=== PATIENT | male | born 1985 | race Caucasian/White ===

== ENCOUNTER 2019-02-11 16:14 | Inpatient (IN) | payer MEDICAID, OTHER ==
[~2019-02-11] VITALS: Ht 165.1 cm; Wt 75.8 kg
[2019-02-11] MEDS ORDERED: NS 1,000 ML IV ONE (17:15)
[2019-02-11 17:34] LABS: BASO % 0.3 % (0.0-1.0); EOS # 0.2 10^3/uL (0.0-0.5); EOS % 1.3 % (0.0-3.0); HEMATOCRIT 40.8 % (42.0-52.0); HEMOGLOBIN 13.8 g/dl (13.5-17.5); LYMPH # 2.5 10^3/uL (1.5-5.0); MEAN CORPUSCULAR HEMOGLOBIN 33.1 pg (27.0-33.0); MEAN CORPUSCULAR HGB CONC 33.8 g/dl (32.0-36.5); MEAN CORPUSCULAR VOLUME 97.8 fl (80.0-96.0); MONO # 1.9 10^3/uL (0.0-0.8); MONO % 15.1 % (0.0-5.0); NEUTROPHILS # 7.7 10^3/uL (1.5-8.5); NEUTROPHILS % 63.1 % (36.0-66.0); PLATELET COUNT, AUTOMATED 171 10^3/uL (150-450); RED BLOOD COUNT 4.17 10^6/uL (4.30-6.10); WHITE BLOOD COUNT 12.3 10^3/uL (4.0-10.0)
[2019-02-11 17:43] LABS: INR 0.96; PARTIAL THROMBOPLASTIN TIME 26.5 SECONDS (25.0-38.4); PROTHROMBIN TIME 12.5 SECONDS (11.8-14.0)
[2019-02-11] MEDS ORDERED: MORPHINE 4 MG/ML 1ML VIAL/SYRINGE (J2270) IV ONE (18:00)
[2019-02-11] MEDS ORDERED: ONDANSETRON 4MG/2ML VIAL (J2405) As Ordered ONE (18:03)
[2019-02-11 18:09] LABS: ALBUMIN 3.8 GM/DL (3.2-5.2); ALT/SGPT 20 U/L (12-78); BILIRUBIN,DIRECT 0.1 MG/DL (0.0-0.2); BILIRUBIN,TOTAL 0.4 MG/DL (0.2-1.0); BLOOD UREA NITROGEN 25 MG/DL (7-18); CARBON DIOXIDE LEVEL 25 MEQ/L (21-32); CHLORIDE LEVEL 109 MEQ/L (98-107); CREATININE FOR GFR 3.28 MG/DL (0.70-1.30); GLUCOSE, FASTING 77 MG/DL (70-100); LIPASE 239 U/L (73-393); POTASSIUM SERUM 3.9 MEQ/L (3.5-5.1); SODIUM LEVEL 141 MEQ/L (136-145); TOTAL PROTEIN 6.6 GM/DL (6.4-8.2)
[2019-02-11] MEDS ORDERED: ONDANSETRON 4MG/2ML VIAL (J2405) IV ONE (18:15)
--- NOTE | 2019-02-11 19:11 | REPVR ---
PROCEDURE INFORMATION: Exam: US Retroperitoneal Limited, Kidneys Exam date and time: 02/11/2019 6:19 PM Clinical history: 34 years old, male; Pain; Other: Flank; Additional info: Bilateral flank pain TECHNIQUE: Imaging protocol: Real-time ultrasound of the retroperitoneum with image documentation. Examination was focused on the kidneys. COMPARISON: Portions of CT Abdomen without contrast 08/13/2014 12:28 PM FINDINGS: Right kidney: Length: 10.8 cm. Mildly increased cortical echogenicity. No urolithiasis. No hydronephrosis. Left kidney: Length: 10.4 cm. Mildly increased cortical echogenicity. No urolithiasis. No hydronephrosis. Bladder: Bilateral ureteral jets could not be demonstrated during the time of the study. No stones. IMPRESSION: 1. No acute findings. 2. Mildly increased bilateral cortical echogenicity, which could be due to normal variation, medical renal disease, or other etiology. Electronically signed by: Xavier Hernandez On 02/11/2019 19:11:25 PM
[2019-02-11] MEDS ORDERED: cefTRIAXone SOD 1 GM in D5W MINI-BAG PLUS 50 ML IV ONE (20:00)
[2019-02-11] MEDS ORDERED: ACETAMINOPHEN TAB 650MG DOSE (2X325MG) PO PRN (20:00)
--- NOTE | 2019-02-11 20:01 | HPEPDOC ---
[facility] Medical History & Physical Date of Admission Feb 11, 2019 Date of Service: Feb 11, 2019 Attending Physician: ISADORA MARTINO MD History and Physical TIME OF SERVICE: 855PM CHIEF COMPLAINT: abdominal pain HISTORY OF PRESENT ILLNESS: This is a 34-year-old male who was seen at [facility] last night for evaluation of bilateral flank pain that began for 5 days ago. His initial workup revealed a WBC count of 14.4 and creatinine of 1.9. The CT of abdomen showed bilateral perinephric stranding; based on notes from the outside facility he was diagnosed with CKD. He was supposed to be transferred to another facility for a higher level of care but he left A. He reports leaving the hospital because he felt better. Today he came to [facility] because his pain was "10 times worse" than it was yesterday. Specifically, he had constant, sharp bilateral flank pain that radiated to the front that improved with lying down and is aid worse BY sitting up. Associated symptoms included nausea, more than 10 episodes of bloody emesis, bloody diarrhea , bruise at the left flank that began 4 or 5 days ago. He denies having fevers or chills, reports feeling cold all the time, has lost weight over the last few months, and has had a poor appetite. He denies having a rash, denies having joint pain, and denies having blood in the urine. Today WBC count decreased to 12.3, but his creatinine increased to 3.2. He received IV fluids and ceftriaxone. REVIEW OF SYSTEMS: 12 point review of systems negative except as listed in HPI PAST MEDICAL/ SURGICAL HISTORY: Denies any past medical history of kidney problems, COPD, any other medical problems, or surgeries SOCIAL HISTORY: Uses nicotine Drinks alcohol at least 2 beers daily. Reports his last drink was 4-5 days ago FAMILY HISTORY: Denies family history of kidney problems, cancer, or any other medical problems ALLERGIES: Please see below. HOME MEDICATIONS: Please see below. PHYSICAL EXAMINATION: VITAL SIGNS: Please see below. GENERAL APPEARANCE: Well-nourished, well-developed, appears to be in pain HEENT: Normocephalic, atraumatic, mucous members moist and pink CARDIOVASCULAR: Regular rate and rhythm. No murmurs, rubs or gallops LUNGS: Coughing occasionally. There is end expiratory wheezing ABDOMEN: . Bowel sounds are hypoactive, the patient's grimacing with light palpation of the abdomen, there is CVA tenderness MUSCULOSKELETAL: Age of motion is intact in all 4 extremities INTEGUMENT: There is a bruise at the left flank area with a raised lesion NEUROLOGICAL: CN 2-12 grossly intact. Speech not dysarthric PSYCHIATRIC: Alert and oriented to person, place and time, able to understand and follow commands, is irritable LABORATORY DATA: See below. IMAGING: Renal ultrasound " IMPRESSION: 1. No acute findings. 2. Mildly increased bilateral cortical echogenicity, which could be due to normal variation, medical renal disease, or other etiology. " Ultrasound of the pelvis " IMPRESSION: Probable liquefied hematoma in the right lower abdominal wall superficial soft tissues, with adjacent soft tissue edema or contusion." MICROBIOLOGY: Please see below. ASSESSMENT: Mr. Tirado is a 34-year-old male with a past medical history of alcohol abuse who will be admitted primarily for management of JARAD. PLAN: 1. JARAD vs JARAD on CKD ? His creatinine increased from 1.9 yesterday to 3.2 today. It is unclear if he has undiagnosed CKD The UA from [facility] showed + 100 protein, no leuk eser,no nitrites, no WBC The CT from [facility] showed findings c/w pyelonephritis The Renal US done here showed findings c/w possible CKD The Ca++ was wnl Plan: Is/Os, daily weights / Renal diet / IVF/ f/u CPK, drug screen, Phosphorous, 25 Vitamin D, Hepatitis Panel, PTH, C3, C4, Ulytes for FENa/FEUrea, UPro:Cr ratio / will not order protein immunoelectrophoresis bc he doesn't have anemia/ day time team can decide if he needs in pt vs out pt Nephrology eval / stop NSAIDs, ACEIs, ARBs and other Nephrotoxic drugs 2. Possible GI Bleed The patient reports having hematemesis and bloody diarrhea Due to hx of alcohol abuse, he may have esophageal varices +/- hemorrhoids His MAP is 109, HR is 83 and Hg is 13.8 [place]-Blatchford Score to identify low risk UGIB = 3 points = A GBS greater than zero suggests a High Risk GI bleed that is likely to require medical intervention" Plan: f/u stool occult / IV PPI BID / Octreotide drip / IV ciprofloxacin / avoid NSAIDs / pending repeat Hg day time team can determine if GI consult for EGD +/-c-scope is warranted this admission or can be done on an out pt basis 3. Left Flank Hematoma / Flank Pain Cause TBD His presentation doesn't meet criteria for acute pancreatitis b/c the lipase is wnl and CT scan didn't show findings c/w pancreatitis. Despite the CT scan showing perinephric stranding his UA was not c/w a UTI. The report from the US of the flank showed a hematoma. The only SIRS criteria he has is an elevated WBC # Plan: if he develops additional SIRS criterial the day time team may consider additional abx and or surgical consult / acetaminophen and tramadol for pain 4. Alcohol Abuse He denies having a hx of seizures when he doesn't drink. Plan: telemetry / seizure precautions / fall precautions / Thiamine 100mg daily, Folic acid 1mg daily, MVI / IVF / Zofran PRN for n/v /social work consult for referral to AA or other local support group 5. Cough & Wheezing possibly 2/2 bronchitis The patient denies having a hx of COPD. Plan: f/u influenza panel 6. Tobacco Abuse Plan: smoking cessation education DVT px w SCDs due to reports of hematemesis and bloody diarrhea Disposition pending clinical course 635AM LATE ENTRY Per d/w nursing staff he has had episodes of bradycardia w a HR in the 40s and did not c/o of any symptoms. 7.Asymptomatic Bradycardia Plan:c/w telemetry / f/u TSH & EKG Vital Signs Vital Signs Date Time Temp Pulse Resp B/P (MAP) Pulse Ox O2 Delivery O2 Flow Rate FiO2 02/11/19 18:49 16 02/11/19 16:58 02/11/19 16:15 98.4 83 100 Room Air Laboratory Data Labs 24H Laboratory Tests 2 02/11/19 17:14: Immature Granulocyte % (Auto) 0.2, Neutrophils (%) (Auto) 63.1, Lymphocytes (%) (Auto) 20.0L, Monocytes (%) (Auto) 15.1H, Eosinophils (%) (Auto) 1.3, Basophils (%) (Auto) 0.3, Neutrophils # (Auto) 7.7, Lymphocytes # (Auto) 2.5, Monocytes # (Auto) 1.9H, Eosinophils # (Auto) 0.2, Basophils # (Auto) 0.0, Nucleated Red Blood Cells % (auto) 0.0, Prothrombin Time 12.5, Prothromb Time International Ratio 0.96, Activated Partial Thromboplast Time 26.5, Urine Color STRAW, Urine Appearance CLEAR, Urine pH 6.0, Urine Specific [place] 1.005, Urine Protein 2+H, Urine Glucose (UA) NEGATIVE, Urine Ketones NEGATIVE, Urine Blood NEGATIVE, Urine Nitrite NEGATIVE, Urine Bilirubin NEGATIVE, Urine Urobilinogen 0.2, Urine Leuk ocyte Esterase NEGATIVE, Urine WBC (Auto) 1, Urine RBC (Auto) 2, Urine Hyaline Casts (Auto) 0, Urine Bacteria (Auto) 1+H, Urine Squamous Epithelial Cells 0, Urine Mucus (Auto) SMALL, Urine Sperm (Auto) , Anion Gap 7L, Glomerular Filtration Rate 23.0L, Calcium Level 9.0, Total Bilirubin 0.4, Direct Bilirubin 0.1, Aspartate Amino Transf (AST/SGOT) 15, Alanine Aminotransferase (ALT/SGPT) 20, Alkaline Phosphatase 68, Total Protein 6.6, Albumin 3.8, Albumin/Globulin Ratio 1.36, Lipase 239 CBC/BMP Laboratory Tests 02/11/19 17:14 Home Medications No Active Prescriptions or Reported Meds Allergies Coded Allergies: No Known Allergies (Unverified , 02/11/19) A-FIB/CHADSVASC A-FIB History Current/History of A-Fib/PAF?: No Current PO Anticoag Therapy: No ISADORA MARTINO MD Feb 11, 2019 20:01
[2019-02-11 20:43] LABS: PTH INTACT 20.5 PG/ML (18.5-88.0)
[2019-02-11] MEDS: NS 1,000 ML IV SCH (20:55)
--- NOTE | 2019-02-11 21:40 | REPVR ---
PROCEDURE INFORMATION: Exam: US Pelvis Limited, Male Exam date and time: 02/11/2019 9:21 PM Clinical history: 34 years old, male; Mass, lump, or swelling; Lower quadrant, right; Additional info: Right lower abdominal bruising with nodule TECHNIQUE: Imaging protocol: Real-time pelvic ultrasound with image documentation. COMPARISON: No relevant prior studies available. FINDINGS: Soft tissues: Ultrasound imaging of the right lower abdominal wall in area of palpable abnormality and bruising demonstrates a circumscribed, anechoic, avascular 11 x 8 x 6 mm fluid collection with adjacent soft tissue swelling and increased subcutaneous fat echogenicity. IMPRESSION: Probable liquefied hematoma in the right lower abdominal wall superficial soft tissues, with adjacent soft tissue edema or contusion. Electronically signed by: Xavier Hernandez On 02/11/2019 21:40:19 PM
[2019-02-11] MEDS ORDERED: LORazepam 2 MG TAB PO PRN (22:30)
[2019-02-11] MEDS ORDERED: ONDANSETRON 4 MG TAB (S0181) PO PRN (22:30)
[2019-02-11] MEDS ORDERED: OCTREOTIDE ACETATE 1,200 MCG in NS 238.8 ML IV SCH (23:00)
[2019-02-11 23:10] LABS: COMPLEMENT C3 95 MG/DL (90-180); COMPLEMENT C4 16 MG/DL (10-40); PHOSPHORUS LEVEL 3.4 MG/DL (2.5-4.9)
[2019-02-11] MEDS ORDERED: traMADol 50 MG TAB PO PRN (23:15)
[2019-02-11 23:32] LABS: CPK CREATINE PHOSPHOKINASE 58 U/L (39-308); ETHYL ALCOHOL (ETHANOL) < 0.003 % (0.000-0.010)
[2019-02-11] MEDS: PANTOPRAZOLE 40MG INJ (PROTONIX) (C9113) IV SCH (23:32)
[2019-02-11 23:55] VITALS: BP 158/95
[2019-02-12] VITALS: BP 158/95
[2019-02-12] MEDS: THIAMINE 100 MG TAB PO SCH ×3 (00:26→21:38)
[2019-02-12] MEDS: NICOTINE 14 MG/24 HR TRANSDERMAL TD SCH ×2 (00:26→09:30)
[2019-02-12] MEDS: NS 1,000 ML IV SCH ×4 (02:33→21:45)
[2019-02-12 06:00] VITALS: BP 162/97
[2019-02-12 06:16] LABS: HEMOGLOBIN 12.5 g/dl (13.5-17.5); MEAN CORPUSCULAR HEMOGLOBIN 32.4 pg (27.0-33.0); MEAN CORPUSCULAR HGB CONC 32.9 g/dl (32.0-36.5); MEAN CORPUSCULAR VOLUME 98.4 fl (80.0-96.0); PLATELET COUNT, AUTOMATED 150 10^3/uL (150-450); RED BLOOD COUNT 3.86 10^6/uL (4.30-6.10); WHITE BLOOD COUNT 10.3 10^3/uL (4.0-10.0)
[2019-02-12 06:40] LABS: CALCIUM LEVEL 8.5 MG/DL (8.5-10.1); CREATININE FOR GFR 3.4 MG/DL (0.70-1.30); GLOMERULAR FILTRATION RATE 22.1 (>60); POTASSIUM SERUM 4.3 MEQ/L (3.5-5.1)
[2019-02-12 07:07] LABS: THYROID STIMULATING HORMONE 0.216 uIU/ML (0.358-3.740)
[2019-02-12] MEDS ORDERED: CIPROFLOXACIN 500 MG TAB PO SCH (09:00)
[2019-02-12] MEDS ORDERED: **hydrALAZINE** 10 MG TAB PO SCH (09:00)
[2019-02-12 09:16] LABS: HEPATITIS B SURFACE ANTIBODY NEGATIVE (POSITIVE)
[2019-02-12 09:27] LABS: HEPATITIS B SURFACE ANTIGEN NEGATIVE (NEGATIVE)
[2019-02-12] MEDS: MULTIVITAMINS/MINERALS THERAP 1 TAB PO SCH (09:30)
[2019-02-12] MEDS: PANTOPRAZOLE 40MG INJ (PROTONIX) (C9113) IV SCH ×2 (09:30→21:38)
[2019-02-12] MEDS: FOLIC ACID 1 MG TAB PO SCH (09:31)
[2019-02-12 09:55] LABS: HEPATITIS B CORE ANTIBODY IGM NEGATIVE (NEGATIVE)
[2019-02-12 10:10] LABS: HEPATITIS C VIRUS ABY INDEX > 11.0 INDEX (<0.8)
--- NOTE | 2019-02-12 10:36 | ECGEPIP ---
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
[2019-02-12] MEDS ORDERED: NORCO, ANEXSIA 5/325MG TABLET (HYDROcodone/ACETAMINOPHEN) PO PRN (12:00)
[2019-02-12] MEDS: amLODIPine 5 MG TAB PO SCH ×2 (12:17→21:39)
[2019-02-12] MEDS: traMADol 50 MG TAB PO SCH ×3 (12:18→21:38)
[2019-02-12 13:06] LABS: HEMATOCRIT 40.4 % (42.0-52.0); HEMOGLOBIN 13.6 g/dl (13.5-17.5)
[2019-02-12 14:00] VITALS: BP 168/98
[2019-02-12] MEDS: ONDANSETRON 4MG/2ML VIAL (J2405) IV PRN (14:35)
[2019-02-12] MEDS: NORCO, ANEXSIA 5/325MG TABLET (HYDROcodone/ACETAMINOPHEN) PO PRN ×2 (14:36→22:30)
--- NOTE | 2019-02-12 20:06 | REPVR ---
PROCEDURE INFORMATION: Exam: CT Chest Without Contrast Exam date and time: 02/12/2019 6:21 PM Clinical history: 34 years old, male; Pain; Other: Cough; Additional info: Cough, hematemesis, PT with eshter TECHNIQUE: Imaging protocol: Computed tomography of the chest without contrast. 3D rendering: MIP reconstructed images were created and reviewed. Radiation optimization: All CT scans at this facility use at least one of these dose optimization techniques: automated exposure control; mA and/or kV adjustment per patient size (includes targeted exams where dose is matched to clinical indication); or iterative reconstruction. COMPARISON: No relevant prior studies available. FINDINGS: Lungs: No focal areas of consolidation. No masses. Pleural space: No pleural effusion or pneumothorax. Heart: Unremarkable. No pericardial effusion. Aorta: Unremarkable. Lymph nodes: Small calcified right mediastinal and axillary lymph nodes. No pathologically enlarged lymph nodes. Gallbladder and bile ducts: Questionable wall thickening of the partially visualized gallbladder. Bones/joints: No acute osseus lesion or fracture. Soft tissues: Unremarkable. IMPRESSION: 1. No acute findings in the thorax. 2. Questionable wall thickening of the partially visualized gallbladder. Correlate with CT abdomen and pelvis. Electronically signed by: Viraj Watson On 02/12/2019 20:05:55 PM
--- NOTE | 2019-02-12 20:08 | REP ---
Clinical: Abdominal and flank pain. Technique: Axial noncontrast images from the lung bases to the pubic symphysis with coronal and sagittal re-formations. Comparison: 08/13/2014. Findings: Mild inflammatory stranding is suggested in the central mid abdomen and right side which is nonspecific. Differential diagnosis may include enterocolitis, pancreatitis, and cholecystitis cannot be excluded. No free air. No significant adenopathy. Liver, spleen, pancreas, bilateral adrenal glands and kidneys are relatively normal for noncontrast evaluation. Cholelithiasis suggested. The enteric system is without obstruction or acute inflammatory process. Colonic and sigmoid diverticulosis. Pelvis demonstrates normal bladder and age appropriate prostate/seminal vesicles. No ascites. No free air. Abdominal aorta without aneurysm. Impression: 1. Upper abdominal inflammatory stranding extending to the right side of the abdomen is nonspecific. Differential diagnosis may include but is not limited to pancreatitis, colitis, cholecystitis. 2. No hydroureteronephrosis or nephroureterolithiasis. Electronically Signed by Anthony Gordon MD 02/12/2019 08:00 P
[2019-02-12 20:26] LABS: HEMOGLOBIN 12.4 g/dl (13.5-17.5)
[2019-02-12 22:00] VITALS: BP 162/97
[2019-02-12] MEDS: NICOTINE POLACRILEX 2 MG GUM PO PRN (22:28)
[2019-02-13] MEDS: ONDANSETRON 4MG/2ML VIAL (J2405) IV PRN ×2 (00:43→20:23)
[2019-02-13] MEDS: SENOKOT S TAB PO SCH ×3 (01:39→20:08)
[2019-02-13] MEDS ORDERED: PROMETHAZINE INJ 25 MG/ML VIAL (J2550) IM ONE (04:15)
[2019-02-13 04:20] LABS: BASO # 0.1 10^3/uL (0.0-0.2); BASO % 0.5 % (0.0-1.0); EOS # 0.2 10^3/uL (0.0-0.5); EOS % 1.3 % (0.0-3.0); HEMATOCRIT 37.9 % (42.0-52.0); HEMOGLOBIN 12.6 g/dl (13.5-17.5); LYMPH # 1.5 10^3/uL (1.5-5.0); LYMPH % 12.3 % (24.0-44.0); MEAN CORPUSCULAR HEMOGLOBIN 32.5 pg (27.0-33.0); MEAN CORPUSCULAR HGB CONC 33.2 g/dl (32.0-36.5); MEAN CORPUSCULAR VOLUME 97.7 fl (80.0-96.0); MONO # 1.3 10^3/uL (0.0-0.8); MONO % 11.1 % (0.0-5.0); NEUTROPHILS # 8.9 10^3/uL (1.5-8.5); NEUTROPHILS % 74.4 % (36.0-66.0); PLATELET COUNT, AUTOMATED 164 10^3/uL (150-450); RED BLOOD COUNT 3.88 10^6/uL (4.30-6.10)
[2019-02-13] MEDS: NS 1,000 ML IV SCH (04:31)
[2019-02-13 04:40] LABS: CALCIUM LEVEL 8.3 MG/DL (8.5-10.1); CREATININE FOR GFR 3.21 MG/DL (0.70-1.30); GLOMERULAR FILTRATION RATE 23.6 (>60); POTASSIUM SERUM 4.4 MEQ/L (3.5-5.1)
[2019-02-13] MEDS ORDERED: PROMETHAZINE INJ 25 MG/ML VIAL (J2550) IV ONE (05:15)
[2019-02-13 06:00] VITALS: BP 153/80
[2019-02-13 06:12] LABS: COMPLEMENT C3 91 MG/DL (90-180); COMPLEMENT C4 18 MG/DL (10-40)
[2019-02-13] MEDS: NORCO, ANEXSIA 5/325MG TABLET (HYDROcodone/ACETAMINOPHEN) PO PRN ×3 (08:39→21:41)
[2019-02-13] MEDS: NICOTINE 14 MG/24 HR TRANSDERMAL TD SCH (09:00)
[2019-02-13] MEDS: amLODIPine 5 MG TAB PO SCH ×2 (09:21→20:38)
[2019-02-13] MEDS: FOLIC ACID 1 MG TAB PO SCH (09:21)
[2019-02-13] MEDS: MULTIVITAMINS/MINERALS THERAP 1 TAB PO SCH (09:21)
[2019-02-13] MEDS: THIAMINE 100 MG TAB PO SCH ×2 (09:21→20:37)
[2019-02-13] MEDS: NICOTINE POLACRILEX 2 MG GUM PO PRN ×2 (09:22→15:55)
[2019-02-13] MEDS: PANTOPRAZOLE 40MG INJ (PROTONIX) (C9113) IV SCH ×2 (09:22→20:37)
--- NOTE | 2019-02-13 09:26 | CR ---
DATE OF CONSULTATION: 02/12/2019 REQUESTING PHYSICIAN: Dr. Taisha Rajan REASON FOR CONSULTATION: Nonoliguric acute kidney injury. HISTORY OF PRESENT ILLNESS: Chandler Tirado is a 34-year-old male with a past medical history of alcohol abuse, remote history of hepatitis C (contracted via tattooing) and no other self-reported medical problems. The patient reports he has no primary care physician and has not had routine blood work in recent memory. He reports he had a treatment of his hepatitis C around 12 years ago. The patient states that he was in his usual state of health until about five days ago when he developed episodic bloody diarrhea associated with bilateral lower quadrant crampy and stabbing pain, bilateral lower back pain and also episodic bloody vomiting. He denies any sick contacts or travel. He states that his diarrhea and vomiting was severe enough that he had to stop working (works at [employer]). The patient also reports subjective fever and chills and rigors. He denies any nonsteroidal anti-inflammatory drug (NSAID) use. He home went to the emergency room in [place] and was found to have a creatinine of 1.9. The patient left [place] against medical advice. Subsequently he came to [facility] yesterday because of worsening pain in his low back and in his lower quadrants and because of ongoing bloody diarrhea and hematemesis. The patient also reports that he found a bruise on his right lower quadrant and he does not know how it got there. The patient denies having any rash, any acute myalgias or arthralgias. He denies a personal or family history of autoimmune disease. He denies any changes in urine. He was seen and examined by myself this morning at the bedside after nephrology evaluation was requested as his serum creatinine on lab studies here has risen from 1.9 in [place] to 3.4 this morning. PAST MEDICAL HISTORY: Reported history of hepatitis C per patient treated 12 years ago and contracted via tattooing. SOCIAL HISTORY: The patient says he drinks six cans of beer daily, 12 ounce cans and has done so for many years. Chronic active smoker, no illicit drugs. He is engaged. FAMILY HISTORY: The patient denies a family history of kidney disease, end-stage renal disease or autoimmune disease. He reports his grandmother of breast cancer and his grandfather of colon cancer. He has no siblings and he states his parents are in good health. HOME MEDICATIONS: The patient denies using any home medications. ALLERGIES: NO KNOWN DRUG ALLERGIES. PAST SURGICAL HISTORY: The patient denies surgery. PHYSICAL EXAMINATION: VITAL SIGNS: Temperature 98.5, pulse 51, respiratory rate 17, blood pressure 162/97, saturating 99% on room air. GENERAL: The patient is seen lying in bed, a young male, well nourished, having notable chills and rigors with . Extraocular muscles are intact. Sclerae are anicteric. Ear, nose and throat are unremarkable. Dentition is poor but there is no notable oral ulcers. NECK: The neck is supple. The jugular veins were not elevated. CARDIAC: S1-S2, mild bradycardia, no edema in the peripheries. LUNGS: The lungs are clear to auscultation bilaterally. No crackle, rale or rhonchus. ABDOMEN: Soft and tender to palpation in the bilateral lower quadrant. There is a bruise noted in the right lower quadrant that is oval in shape and about 3 inches long. There is bilateral flank tenderness. EXTREMITIES: The extremities are negative for clubbing, cyanosis or edema. SKIN: Normal temperature and turgor. NEUROLOGIC: The patient is oriented times three, conversational, cooperative with physical exam, no focal deficits. PSYCHIATRIC: Appropriate mood and effect. He does appear anxious. REVIEW OF SYSTEMS: CONSTITUTIONAL: He reports chills, rigors and subjective fever. EYES: He denies visual changes or tearing. ENT: He denies odynophagia, rhinorrhea or tinnitus. CARDIAC: He denies chest pain or palpitations. RESPIRATORY: He denies shortness of breath or cough. GASTROINTESTINAL: He reports bloody emesis and bloody diarrhea. GENITOURINARY: He denies foamy urine, bloody urine or dysuria. ENDOCRINE: He denies diabetes or thyroid issues. MUSCULOSKELETAL: He denies any new myalgias. He does report low back pain. He denies gout. HEMATOLOGIC: He reports a bruise on his lower right lower quadrant. He denies anticoagulant use. SKIN: He denies any new rashes or pruritus. NEUROLOGIC: He denies seizure or syncope. PSYCHIATRIC: He denies any anxiety or depression. The remainder of review of systems is negative as per history of present illness (HPI). LABORATORY DATA: Sodium 141, potassium 4.3, bicarbonate 21, BUN 24, creatinine 3.4, creatine kinase 58, phosphorus 3.4, lactic acid 1.1, hemoglobin 12.4, platelets 150, PTH 20, urine 2+ protein, C3 and C4 are normal. IMAGING: Renal ultrasound February 11: Mildly increased bilateral cortical echogenicity, no hydronephrosis. INPATIENT MEDICATIONS: - normal saline at 150 mL an hour - amlodipine 5 mg by mouth twice a day - folic acid 1 mg by mouth daily - multivitamin one tablet by mouth daily - nicotine patch - Protonix 40 mg IV twice a day - thiamine 100 mg by mouth twice a day - tramadol 50 mg by mouth three times a day PROBLEMS 1. Non oliguric acute kidney injury. Baseline creatinine is unknown in this young man who denies having a primary care physician or routine blood work in the past. Creatinine was 1.9 in [place] emergency room (ER) and 3.2 on [facility] labs yesterday, and creatinine 3.4 today. Acute kidney injury is in the setting of bloody diarrhea, bloody emesis, abdominal and flank pain, falling platelet count. His urinalysis shows proteinuria without red blood cells (RBC). The etiology of his acute kidney injury is unknown but I am suspicious for hemolytic uremic syndrome given the bloody diarrhea and kidney injury. His platelets are at the lower level of normal at 150. We will additionally send serologies for other types of glomerulonephritis, get lactic acid dehydrogenase (LDH), haptoglobin, peripheral blood smear, JOSEFA, ANCA, anti-tr3, antimyeloperoxidase (MPO), hepatitis panel, HIV screen. Will also performed 24-hour urine collection for protein quantification. His complements are noted to be at the lower limit of normal and I would like to repeat his complements again tomorrow. he may end up needing a kidney biopsy for definitive diagnosis. Will decide after we have more data available for review. 2. Blood diarrhea, bloody emesis. Check gastrointestinal PCR for Shiga toxin, or Escherichia (E.) coli. Trend hemoglobin and hematocrit. Primary team has already started him on Protonix. The differential diagnosis includes gastrointestinal (GI) bleed versus esophageal variceal bleed versus diarrhea associated with hemolytic uremic syndrome (HUS). 3. Chills and rigors. The patient has mild leukocytosis but no febrile spikes. He was having notable rigors at my visit at the bedside today. His blood cultures are pending and a gastrointestinal panel has been requested as well. Thank you for involving me in the care of Mr. Tirado. I will be happy to follow him along with you.
[2019-02-13] MEDS: traMADol 50 MG TAB PO SCH ×3 (09:53→20:40)
--- NOTE | 2019-02-13 11:54 | IPNPDOC ---
Subjective Date Seen The patient was seen on 02/12/19. Subjective Chief Complaint/HPI Continues to complain of severe pain in both the flanks and the right lower quadrant of the abdomen. No fever or chills, has not had a bowel movement in 2 days , does not have any appetite, small amounts of urine output. No fever or chills, no cough or vomiting . No blood in stool . Objective Physical Examination General Exam: Positive: Alert, Cooperative, Mild Distress Eye Exam: Positive: PERRLA, Conjunctiva & lids normal, EOMI; Negative: Sclera icteric ENT Exam: Positive: Atraumatic, Mucous membr. moist/pink, Pharynx Normal Neck Exam: Positive: Supple; Negative: JVD, thyromegaly Chest Exam: Positive: Clear to auscultation, Normal air movement Heart Exam: Positive: Rate Normal, Regular Rhythm, Normal S1, Normal S2; Negative: Murmurs, Rubs Abdomen Exam: Positive: Normal bowel sounds, Soft, Tenderness, Mass; Negative: Hepatospenomegaly Extremity Exam: Positive: Normal pulses; Negative: Clubbing, Cyanosis, Edema Skin Exam: Positive: Nl turgor and temperature; Negative: Rash, Breakdown Assessment /Plan Assessment 34 year old male with h/o Hepatitis C treated with Ribavarin 12 years ago, alcohol abuse transferred from [facility] from [facility]. He has been having bilateral flank pain for 4 days prior to admission with decreased urine out put and also noted a bruise in the right lower abdominal wall. He denied being in a fight or falling or bumping into anything. JARAD vs JARAD on CKD ? His creatinine increased from 1.9 yesterday to 3.2 today. complements low normal will consult nephrology continue ivf. UA no blood, only 2+ protein. Possible GI Bleed The patient reports having hematemesis and bloody diarrhea CT abdomen did not show any cirrhotic pattern in the liver, INR OK, no thrombocytopenia. Unlikely cirrhosis will stop octreotide gtt. Right Flank Hematoma / Flank Pain No etiology determined. CT abdomen; shows Upper abdominal inflammatory stranding extending to the right side of the abdomen is nonspecific. No hydroureteronephrosis or nephroureterolithiasis. Pelvic US : Probable liquefied hematoma in the right lower abdominal wall s uperficial soft tissues, with adjacent soft tissue edema or contusion. Alcohol Abuse He denies having a hx of seizures when he doesn't drink. continue MVI and folate and thiamine. Tobacco Abuse nicotine gums DVT px w SCDs due to reports of hematemesis and bloody diarrhea Asymptomatic Bradycardia Plan:c/w telemetry / f/u TSH & EKG Plan/VTE VTE Prophylaxis Ordered?: Yes VS, I&O, 24H, Fishbone Vital Signs/I&O Vital Signs Date Time Temp Pulse Resp B/P (MAP) Pulse Ox O2 Delivery O2 Flow Rate FiO2 02/12/19 01:06 16 Room Air 02/12/19 00:00 55 158/95 02/11/19 23:55 96.9 97 I&O- Last 24 Hours up to 6 AM 02/12/19 06:00 Intake Total 2610 ml Output Total 0 ml Balance 2610 ml Laboratory Data 24H LABS Laboratory Tests 2 02/11/19 17:14: Immature Granulocyte % (Auto) 0.2, Neutrophils (%) (Auto) 63.1, Lymphocytes (%) (Auto) 20.0L, Monocytes (%) (Auto) 15.1H, Eosinophils (%) (Auto) 1.3, Basophils (%) (Auto) 0.3, Neutrophils # (Auto) 7.7, Lymphocytes # (Auto) 2.5, Monocytes # (Auto) 1.9H, Eosinophils # (Auto) 0.2, Basophils # (Auto) 0.0, Nucleated Red Blood Cells % (auto) 0.0, Prothrombin Time 12.5, Prothromb Time International Ratio 0.96, Activated Partial Thromboplast Time 26.5, Urine Color STRAW, Urine Appearance CLEAR, Urine pH 6.0, Urine Specific [place] 1.005, Urine Protein 2+H, Urine Glucose (UA) NEGATIVE, Urine Ketones NEGATIVE, Urine Blood NEGATIVE, Urine Nitrite NEGATIVE, Urine Bilirubin NEGATIVE, Urine Urobilinogen 0.2, Urine Leukocyte Esterase NEGATIVE, Urine WBC (Auto) 1, Urine RBC (Auto) 2, Urine Hyaline Casts (Auto) 0, Urine Bacteria (Auto) 1+H, Urine Squamous Epithelial Cells 0, Urine Mucus (Auto) SMALL, Urine Sperm (Auto) , Anion Gap 7L, Glomerular Filtration Rate 23.0L, Calcium Level 9.0, Phosphorus Level 3.4, Total Bilirubin 0.4, Direct Bilirubin 0.1, Aspartate Amino Transf (AST/SGOT) 15, Alanine Aminotransferase (ALT/SGPT) 20, Alkaline Phosphatase 68, Total Creatine Kinase 58, Total Protein 6.6, Albumin 3.8, Albumin/Globulin Ratio 1.36, Lipase 239, 25- Hydroxy Vitamin D Total 20.0L, Parathyroid Hormone (Intact) 20.5, Ethyl Alcohol Level < 0.003, Complement C3 95, Complement C4 16 02/11/19 21:35: Lactic Acid Level 1.1 02/12/19 05:45: Nucleated Red Blood Cells % (auto) 0.0, Anion Gap 6L, Glomerular Filtration Rate 22.1L, Calcium Level 8.5, Thyroid Stimulating Hormone (TSH) 0.216L CBC/BMP Laboratory Tests 02/11/19 17:14 02/12/19 05:45 CRAIG EVERETT MD Feb 12, 2019 08:07
[2019-02-13] MEDS: MIRALAX *UNIT DOSE* 17GM PACKET PO SCH ×2 (11:56→20:08)
[2019-02-13] MEDS ORDERED: BISACODYL 5 MG TAB PO ONE (12:00)
--- NOTE | 2019-02-13 12:09 | IPNPDOC ---
Subjective Date Seen The patient was seen on 02/13/19. Subjective Chief Complaint/HPI Says is constipated, no bowel movements for 3 days, continues to have bilateral flank pain . No hematemesis or hemoptysis. Objective Physical Examination General Exam: Positive: Alert, Cooperative, Mild Distress Eye Exam: Positive: PERRLA, Conjunctiva & lids normal, EOMI; Negative: Sclera icteric ENT Exam: Positive: Atraumatic, Mucous membr. moist/pink, Pharynx Normal Neck Exam: Positive: Supple; Negative: JVD, thyromegaly Chest Exam: Positive: Clear to auscultation, Normal air movement Heart Exam: Positive: Rate Normal, Regular Rhythm, Normal S1, Normal S2; Negative: Murmurs, Rubs Abdomen Exam: Positive: Normal bowel sounds, Soft, Tenderness, Mass; Negative: Hepatospenomegaly Extremity Exam: Positive: Normal pulses; Negative: Clubbing, Cyanosis, Edema Skin Exam: Positive: Nl turgor and temperature; Negative: Rash, Breakdown Assessment /Plan Assessment 34 year old male with h/o Hepatitis C treated with Ribavarin 12 years ago, alcohol abuse transferred from [facility] from [facility]. He has been having bilateral flank pain for 4 days prior to admission with decreased urine out put and also noted a bruise in the right lower abdominal wall. He denied being in a fight or falling or bumping into anything. JARAD Etiology not yet determined. No improvement with IVF hydration So not prerenal . complements low normal UA no blood, only 2+ protein. CT chest negative for any pulmonary abnormalities. Further work up has been ordered. If everything comes out negative will need a renal biopsy. has nausea and poor appetite symptomatic management . Possible GI Bleed The patient reported having hematemesis and bloody diarrhea no bleeding noted in hospital No drop in HH. CT abdomen did not show any cirrhotic pattern in the liver, INR OK, no thrombocytopenia. Unlikely cirrhosis Right Flank Hematoma / Flank Pain No etiology determined. CT abdomen; shows Upper abdominal inflammatory stranding extending to the right side of the abdomen is nonspecific. No hydroureteronephrosis or nephroureterolithiasis. Pelvic US : Probable liquefied hematoma in the right lower abdominal wall superficial soft tissues, with adjacent soft tissue edema or contusion. Pain control with tramadol, norco. Alcohol Abuse He denies having a hx of seizures when he doesn't drink. continue MVI and folate and thiamine. Hypertension noted in hospital started on amlodipine Tobacco Abuse nicotine gums DVT px w SCDs due to reports of hematemesis and bloody diarrhea Asymptomatic Bradycardia no issues Plan/VTE VTE Prophylaxis Ordered?: Yes VS, I&O, 24H, Fishbone Vital Signs/I&O Vital Signs Date Time Temp Pulse Resp B/P (MAP) Pulse Ox O2 Delivery O2 Flow Rate FiO2 02/13/19 09:53 19 Room Air 02/13/19 09:21 63 178/104 02/13/19 06:00 97.6 95 I&O- Last 24 Hours up to 6 AM 02/13/19 06:00 Intake Total 2260 ml Output Total 0 ml Balance 2260 ml Laboratory Data 24H LABS Laboratory Tests 2 02/12/19 12:20: 02/12/19 14:04: Hepatitis B Core IgG Antibody Negative 02/13/19 04:06: Immature Granulocyte % (Auto) 0.4, Neutrophils (%) (Auto) 74.4H, Lymphocytes (%) (Auto) 12.3L, Monocytes (%) (Auto) 11.1H, Eosinophils (%) (Auto) 1.3, Basophils (%) (Auto) 0.5, Neutrophils # (Auto) 8.9H, Lymphocytes # (Auto) 1.5, Monocytes # (Auto) 1.3H, Eosinophils # (Auto) 0.2, Basophils # (Auto) 0.1, Nucleated Red Blood Cells % (auto) 0.0, Differential Slide Review Report, Peripheral Blood Smear Path Consult PERIPHERAL SMEAR, Anion Gap 5L, Glomerular Filtration Rate 23.6L, Calcium Level 8.3L, Lactate Dehydrogenase 201, Complement C3 91, Complement C4 18 CBC/BMP Laboratory Tests 02/12/19 12:20 02/12/19 20:16 02/13/19 04:06 Microbiology Microbiology 02/12/19 Blood Culture, Received Pending 02/12/19 Blood Culture, Received Pending CRAIG EVERETT MD Feb 13, 2019 12:09
[2019-02-13 12:15] LABS: HEMATOCRIT 35.9 % (42.0-52.0); HEMOGLOBIN 12.2 g/dl (13.5-17.5)
[2019-02-13 14:00] VITALS: BP 150/80
--- NOTE | 2019-02-13 14:24 | IPN ---
DATE: 02/13/2019 SUBJECTIVE: Chandler is seen and examined this morning at the bedside. He was walking around the room and in and out of the bathroom when I visited him. He reports his pain is adequately controlled with the Percocet. 24-hour urine collection is in progress. The patient is nonoliguric. Laboratories did not show any significant change in renal function. There are no uremic signs or symptoms. His serologies are pending. He denies any gross hematuria of foamy urine. Denies any new bruises appearing. PHYSICAL EXAMINATION: Vital signs: Temperature 97.6, pulse 61, respiratory rate 18, blood pressure 153/80, saturating 95% on room air. Intake yesterday was 2600, urine output has not been recorded. The patient refused weight on the bed scale today. General: The patient is seen walking around the room, young man, somewhat with withdrawn and not very forthcoming. He is not having any notable chills or riders today. Extraocular muscles are intact. Sclerae are anicteric. Ear, nose and sore are unremarkable. There neck is supple. Jugular veins were not elevated. Cardiac: S1, S2. Regular rate and rhythm. Palpable radial pulse. No edema in the peripheries. Lungs: Clear to auscultation bilaterally. No crackles, rales or rhonchus. Abdomen is soft with tenderness in the bilateral lower quadrants, which has improved as compared to yesterday. Flank tenderness is improved as well. The extremities are negative for clubbing, cyanosis or edema. Skin: Normal temperature and turgor. Fading bruise present in the right lower quadrant. Neurologic: Oriented times three. Conversational, cooperative with physical exam. No focal deficit. Psychiatric. The patient is somewhat withdrawn and appears unhappy. LABORATORIES: Sodium 146, potassium 4.4, bicarbonate 24, BUN 20, creatinine 3.2, lactic dehydrogenase 201, haptoglobin pending, hemoglobin 12.2, platelet 164. Repeat complements are at the lower limits of normal. CT chest, abdomen and pelvis are reviewed and discussed with Dr. Rajan. No significant abnormality noted. INPATIENT MEDICATIONS: Normal saline has been discontinued. Remainder of medications are unchanged from prior. PROBLEMS: 1. Nonoliguric acute kidney injury. Baseline renal function is unknown. Peak creatinine was 3.4, 24-hour urine collection is in process. His lactate dehydrogenase has returned back to normal. His platelet count has not fallen any further. His hemoglobin is stable. There has been no recurrent reported diarrhea. Additional workup, including JOSEFA, ANCA are all pending. His complements were repeated and noted to be at the lower limit of normal. If his renal function does not improve, he would require a kidney biopsy for definitive diagnosis. He is not on any antiplatelets or blood thinners. His CT chest, abdomen and pelvis did not have significant abnormality. I am less suspicious for pulmonary renal syndrome. The patient has no dialysis needs at present. He will be reassessed daily for any developing dialysis needs. 2. Hypertension. Blood pressures are elevated from 150 to 178. The patient denies a prior history of hypertension but also never followed up with the primary care physician. Some of the elevated blood pressure may be due to his reported pain. He is presently on amlodipine. There is asymptomatic bradycardia so I would not add a beta fredo; however, hydralazine can be started if blood pressure continues to remain elevated. Given his history of hepatitis C, acute kidney injury, bradycardia, hypertension, I am going to get an echocardiogram.
--- NOTE | 2019-02-13 18:21 | ECHO ---
DATE OF PROCEDURE: 02/13/2019 DATE OF : 1985 AGE: 34 GENDER: Male HEIGHT: 65 inches WEIGHT: 167 pounds BODY SURFACE AREA: 1.83 meters squared INPATIENT: [address] [place] [address], room 4224 REFERRING PHYSICIAN: Dr. Florence Mcqueen INDICATION: Endocarditis. MEASUREMENTS: 2D Measurements: RV: 3.6 cm LV: 4.5 cm Septum: 1.0 cm Posterior wall: 1.0 cm Aortic root: 3.3 cm LA: 3.7 cm LVEF: 65% DOPPLER MEASUREMENTS: AV: 1.32 meters per second LVOT: 0.95 meters per second MV-E: 129, A: 50, EA ratio: 2.6 Early mitral deceleration time: 146 milliseconds E prime: 10, A prime: 9 (medial), E prime 13.8 (lateral) PV: 0.9 meters per second Pulmonary artery acceleration time: 122 milliseconds PASP: 25 mmHg IVC: 1.9 cm COMMENTS: Sinus bradycardia without intraventricular conduction disturbance. M-mode and two-dimensional echocardiography was performed with pulsed, continuous wave, color flow and tissue Doppler studies. Normal left ventricular size, wall thickness and wall motion. Normal left atrial size and Doppler assessment of left ventricular (LV) diastolic function and estimated mean left atrial pressure. Normal right heart chamber sizes and motion and estimated pulmonary arterial pressure. Normal inferior vena cava (IVC) size and collapse against an elevated central venous pressure. Normal appearing aortic valve and cusp separation with no functional valvular abnormality. Normal aortic dimensions. Normal appearing and functioning mitral valvular apparatus. Normal appearing tricuspid and pulmonic valves. No apparent separate intracardiac mass to suggest vegetation. No pericardial effusion.
[2019-02-13 19:40] LABS: CREATININE 24 HOUR, URINE 718.2 MG/24HR (950-2500); CREATININE, URINE 51.3 MG/DL; TOTAL PROTEIN 24 HOUR URINE 211.4 MG/24HR (50-150); URINE TOTAL PROTEIN 15.1 MG/DL (0-12)
[2019-02-13 19:57] LABS: HEMATOCRIT 35.2 % (42.0-52.0); HEMOGLOBIN 11.9 g/dl (13.5-17.5)
[2019-02-13 20:00] VITALS: BP 164/100
[2019-02-13] MEDS ORDERED: diphenhydrAMINE INJ 50MG/ML VIAL (J1200) IV ONE (21:30)
[2019-02-14 01:43] VITALS: BP 158/83
[2019-02-14] MEDS: NORCO, ANEXSIA 5/325MG TABLET (HYDROcodone/ACETAMINOPHEN) PO PRN ×2 (04:06→14:52)
[2019-02-14 04:10] LABS: BASO % 0.3 % (0.0-1.0); EOS # 0.3 10^3/uL (0.0-0.5); EOS % 2.2 % (0.0-3.0); HEMATOCRIT 35.2 % (42.0-52.0); HEMOGLOBIN 12.4 g/dl (13.5-17.5); LYMPH # 1.8 10^3/uL (1.5-5.0); LYMPH % 15.6 % (24.0-44.0); MEAN CORPUSCULAR HEMOGLOBIN 33.9 pg (27.0-33.0); MEAN CORPUSCULAR HGB CONC 35.2 g/dl (32.0-36.5); MEAN CORPUSCULAR VOLUME 96.2 fl (80.0-96.0); MONO # 1.3 10^3/uL (0.0-0.8); MONO % 11.2 % (0.0-5.0); NEUTROPHILS % 70.3 % (36.0-66.0); PLATELET COUNT, AUTOMATED 144 10^3/uL (150-450); RED BLOOD COUNT 3.66 10^6/uL (4.30-6.10); WHITE BLOOD COUNT 11.4 10^3/uL (4.0-10.0)
[2019-02-14] MEDS: ONDANSETRON 4MG/2ML VIAL (J2405) IV PRN ×3 (04:19→20:34)
[2019-02-14 04:31] LABS: CALCIUM LEVEL 8.2 MG/DL (8.5-10.1); CREATININE FOR GFR 2.35 MG/DL (0.70-1.30); GLOMERULAR FILTRATION RATE 33.8 (>60); POTASSIUM SERUM 3.9 MEQ/L (3.5-5.1)
[2019-02-14 06:00] VITALS: BP 137/72
[2019-02-14] MEDS: BISACODYL 5 MG TAB PO SCH (09:00)
[2019-02-14] MEDS: NICOTINE 14 MG/24 HR TRANSDERMAL TD SCH (09:00)
[2019-02-14] MEDS: SENOKOT S TAB PO SCH ×2 (09:00→20:32)
[2019-02-14] MEDS: MIRALAX *UNIT DOSE* 17GM PACKET PO SCH ×2 (09:00→20:31)
[2019-02-14] MEDS: PANTOPRAZOLE 40MG INJ (PROTONIX) (C9113) IV SCH ×2 (09:43→20:34)
[2019-02-14] MEDS: THIAMINE 100 MG TAB PO SCH (09:43)
[2019-02-14] MEDS: MULTIVITAMINS/MINERALS THERAP 1 TAB PO SCH (09:43)
[2019-02-14] MEDS: traMADol 50 MG TAB PO SCH ×3 (09:45→20:34)
[2019-02-14] MEDS: FOLIC ACID 1 MG TAB PO SCH (09:49)
[2019-02-14] MEDS: amLODIPine 5 MG TAB PO SCH ×2 (09:49→20:32)
[2019-02-14] MEDS: NICOTINE POLACRILEX 2 MG GUM PO PRN (10:27)
[2019-02-14 11:14] LABS: HEPATITIS B CORE ANTIBODY IGM NEGATIVE (NEGATIVE); HEPATITIS B SURFACE ANTIBODY NEGATIVE (POSITIVE); HEPATITIS B SURFACE ANTIGEN NEGATIVE (NEGATIVE); HEPATITIS C VIRUS ABY INDEX > 11.0 INDEX (<0.8); HIV 1&2 SCREEN CENTAUR NEGATIVE (NEGATIVE)
--- NOTE | 2019-02-14 12:50 | IPNPDOC ---
Subjective Date Seen The patient was seen on 02/14/19. Subjective Chief Complaint/HPI continues to complain of abdominal and bilateral flank pain. also complains of itching which he thinks is related to the soap. No fever or chills, no chest pain or SOB. Objective Physical Examination General Exam: Positive: Alert, Cooperative, Mild Distress Eye Exam: Positive: PERRLA, Conjunctiva & lids normal, EOMI; Negative: Sclera icteric ENT Exam: Positive: Atraumatic, Mucous membr. moist/pink, Pharynx Normal Neck Exam: Positive: Supple; Negative: JVD, thyromegaly Chest Exam: Positive: Clear to auscultation, Normal air movement Heart Exam: Positive: Rate Normal, Regular Rhythm, Normal S1, Normal S2; Negative: Murmurs, Rubs Abdomen Exam: Positive: Normal bowel sounds, Soft, Tenderness, Mass; Negative: Hepatospenomegaly Extremity Exam: Positive: Normal pulses; Negative: Clubbing, Cyanosis, Edema Skin Exam: Positive: Nl turgor and temperature; Negative: Rash, Breakdown Assessment /Plan Assessment 34 year old male with h/o Hepatitis C treated with Ribavarin 12 years ago, alcohol abuse transferred from [facility] from [facility]. He has been having bilateral flank pain for 4 days prior to admission with decreased urine out put and also noted a bruise in the right lower abdominal wall. He denied being in a fight or falling or bumping into anything. JARAD most probably prerenal as other work up is coming back negative and seems to have improved spontaneously . he did get IVF for the first 2 days after admission complements low normal, cryoglobulins negative. UA no blood, only minimal protein only 211 mg in [address] chest negative for any pulmonary abnormalities. Possible GI Bleed The patient reported having hematemesis and bloody diarrhea no bleeding noted in hospital No drop in HH. CT abdomen did not show any cirrhotic pattern in the liver, INR OK, no thrombocytopenia. Unlikely cirrhosis Right Flank Hematoma / Flank Pain No etiology determined. CT abdomen; shows Upper abdominal inflammatory stranding extending to the right side of the abdomen is nonspecific. No hydroureteronephrosis or nephroureterolithiasis. Pelvic US : Probable liquefied hematoma in the right lower abdominal wall superficial soft tissues, with adjacent soft tissue edema or contusion. Pain control with tramadol, norco. Alcohol Abuse He denies having a hx of seizures when he doesn't drink. continue MVI and folate and thiamine. Hypertension noted in hospital started on amlodipine Tobacco Abuse nicotine gums Asymptomatic Bradycardia no issues Plan/VTE VTE Prophylaxis Ordered?: Yes VS, I&O, 24H, Fishbone Vital Signs/I&O Vital Signs Date Time Temp Pulse Resp B/P (MAP) Pulse Ox O2 Delivery O2 Flow Rate FiO2 02/14/19 09:49 70 170/88 02/14/19 09:45 20 Room Air 02/14/19 06:00 98.7 98 I&O- Last 24 Hours up to 6 AM 02/14/19 06:00 Intake Total 2520 ml Output Total 0 ml Balance 2520 ml Laboratory Data 24H LABS Laboratory Tests 2 02/14/19 04:02: Immature Granulocyte % (Auto) 0.4, Neutrophils (%) (Auto) 70.3H, Lymphocytes (%) (Auto) 15.6L, Monocytes (%) (Auto) 11.2H, Eosinophils (%) (Auto) 2.2, Basophils (%) (Auto) 0.3, Neutrophils # (Auto) 8.0, Lymphocytes # (Auto) 1.8, Monocytes # (Auto) 1.3H, Eosinophils # (Auto) 0.3, Basophils # (Auto) 0.0, Nucleated Red Blood Cells % (auto) 0.0, Anion Gap 7L, Glomerular Filtration Rate 33.8L, Calcium Level 8.2L CBC/BMP Laboratory Tests 02/13/19 19:47 02/14/19 04:02 Microbiology Microbiology 02/13/19 Stool Occult Blood ([facility]) - Final, Complete 02/12/19 Blood Culture - Preliminary, Resulted No growth after 24 hours . All specim... 02/12/19 Blood Culture - Preliminary, Resulted No growth after 24 hours . All specim... CRAIG EVERETT MD Feb 14, 2019 12:48
[2019-02-14] MEDS ORDERED: diphenhydrAMINE 25 MG CAP PO PRN (13:00)
--- NOTE | 2019-02-14 13:21 | IPN ---
DATE OF SERVICE: 02/14/2019 SUBJECTIVE: The patient is seen and examined this morning at the bedside. He complains of stomach cramps and requests pain medication. Otherwise denies any new issues. 24-hour urine output was recorded as 1400 mL. His 24-hour urine protein was extremely mild and his renal function continues to show improvement. He denies shortness of breath, diarrhea or issues voiding. Temperature 98.7, pulse 77, respiratory rate 18, blood pressure 137/72, saturating 98% on room air. General: The patient is seen lying in bed, a young male, well nourished, in no acute distress. He is reluctant to talk and says he just wants to be left alone. Extraocular muscles are intact. Tongue is moist. Neck is supple. Jugular veins are not elevated. Cardiac: S1, S2. Regular rate and rhythm. Lungs are clear to auscultation bilaterally. No crackle, rale or rhonchus. Abdomen is soft. There is no rebound, tenderness nor guarding. There are bowel sounds. There are no new bruises noted. There is no tenderness in the flanks today. Lower extremities are negative for edema, clubbing or cyanosis. Neurologic: He is oriented times three. No focal deficits. Psychiatric: He is withdrawn. LABORATORY DATA: Sodium 144, potassium 3.9, bicarbonate 25, BUN 11, creatinine 2.3, hemoglobin 12.4, platelets 144. INPATIENT MEDICATIONS: Reviewed by myself. Medications have been adjusted by the primary team. Remainder medications unchanged from prior. ECHOCARDIOGRAM: On 02/13/2019, left ventricular ejection fraction 65%. PROBLEMS: 1. Nonoliguric acute kidney injury. Baseline renal function is unknown. Peak creatinine was 3.4, presently down to 2.3. His 24-hour urine collection is not impressive. There is almost a negligible amount of protein. There was no microscopic hematuria on urinalysis. Serologies thus far have only been significant for positive hepatitis C antibody and low normal complements. Remainder of serologies are pending. Renal function is improving with supportive care. If renal function continues to improve, he would not need kidney biopsy. We will continue to monitor for further improvement in his GFR. 2. Hypertension. The patient has been persistently hypertensive over the course of this admission. He denies a prior history of known hypertension, but never has followed up with a primary care physician. He has been requiring antihypertensive therapy here with amlodipine. 3. Reported bloody diarrhea. The patient has not had any further such bowel movements and his stool occult blood was negative in the hospital. His hemoglobin and hematocrit remain stable.
[2019-02-14 14:00] VITALS: BP 148/75
[2019-02-14] MEDS ORDERED: PINK BISMUTH SUSP 524MG/30ML ORAL SYRINGE PO ONE (16:00)
[2019-02-14 22:00] VITALS: BP 170/92
[2019-02-15 00:08] LABS: ANTINUCLEAR ANTIBODIES DIRECT Negative (Negative)
[2019-02-15] MEDS: NORCO, ANEXSIA 5/325MG TABLET (HYDROcodone/ACETAMINOPHEN) PO PRN ×3 (00:55→16:02)
[2019-02-15 07:00] LABS: BASO % 0.3 % (0.0-1.0); EOS # 0.3 10^3/uL (0.0-0.5); EOS % 2.9 % (0.0-3.0); HEMOGLOBIN 12.1 g/dl (13.5-17.5); LYMPH # 1.9 10^3/uL (1.5-5.0); LYMPH % 21.3 % (24.0-44.0); MEAN CORPUSCULAR HEMOGLOBIN 33.4 pg (27.0-33.0); MEAN CORPUSCULAR HGB CONC 35.6 g/dl (32.0-36.5); MEAN CORPUSCULAR VOLUME 93.9 fl (80.0-96.0); MONO # 1.5 10^3/uL (0.0-0.8); MONO % 16.5 % (0.0-5.0); NEUTROPHILS # 5.2 10^3/uL (1.5-8.5); NEUTROPHILS % 58.7 % (36.0-66.0); PLATELET COUNT, AUTOMATED 147 10^3/uL (150-450); RED BLOOD COUNT 3.62 10^6/uL (4.30-6.10); WHITE BLOOD COUNT 8.9 10^3/uL (4.0-10.0)
[2019-02-15 07:35] LABS: CALCIUM LEVEL 8.8 MG/DL (8.5-10.1); CREATININE FOR GFR 1.58 MG/DL (0.70-1.30); GLOMERULAR FILTRATION RATE 53.4 (>60); POTASSIUM SERUM 2.9 MEQ/L (3.5-5.1)
[2019-02-15] MEDS: ONDANSETRON 4MG/2ML VIAL (J2405) IV PRN (07:45)
[2019-02-15] MEDS: NICOTINE 14 MG/24 HR TRANSDERMAL TD SCH (08:07)
[2019-02-15] MEDS: MULTIVITAMINS/MINERALS THERAP 1 TAB PO SCH (08:07)
[2019-02-15] MEDS: PANTOPRAZOLE 40MG INJ (PROTONIX) (C9113) IV SCH (08:07)
[2019-02-15] MEDS: SENOKOT S TAB PO SCH (08:07)
[2019-02-15 08:08] VITALS: BP 159/89
[2019-02-15] MEDS: BISACODYL 5 MG TAB PO SCH (08:08)
[2019-02-15] MEDS: amLODIPine 5 MG TAB PO SCH (08:08)
[2019-02-15] MEDS: MIRALAX *UNIT DOSE* 17GM PACKET PO SCH (08:08)
[2019-02-15] MEDS: FOLIC ACID 1 MG TAB PO SCH (08:08)
[2019-02-15 09:00] VITALS: BP 159/89
[2019-02-15] MEDS ORDERED: POTASSIUM CHLORIDE 10 MEQ SR TABLET PO ONE (09:00)
[2019-02-15] MEDS: KCL 40MEQ in NS 1000ML 1,000 ML IV SCH ×2 (11:19→16:00)
[2019-02-15] MEDS ORDERED: PROMETHAZINE INJ 25 MG/ML VIAL (J2550) IV ONE (12:00)
[2019-02-15 14:00] VITALS: BP 134/72
--- NOTE | 2019-02-15 15:49 | IPN ---
DATE: 02/15/2019 Mr. Tirado is seen this morning on his bedside. He is sitting in the chair at the time of my visit. He is currently receiving intravenous Phenergan for nausea. He denies any dyspnea or chest pain. His diarrhea has improved, and there is no recent vomiting. PHYSICAL EXAMINATION: Temperature 98 degrees Fahrenheit, heart rate 6 per minute, respiratory rate 16 per minute, blood pressure 159/89 mm of mercury, and oxygen saturation is 100% on room air. Head is atraumatic. Neck is supple and without jugular venous distention (JVD) or thyroid enlargement. Heart sounds are regular. Lungs clear to auscultation. Abdomen soft and nontender, and bowel sounds are normal. Extremities have no cyanosis or clubbing. Neurologically, he is awake, alert, and oriented times three. Today's labs show WBC count 8.9, hemoglobin 12.1 and hematocrit 34.0. Sodium 140, potassium 2.9, CO2 of 27, BUN 6, and creatinine 1.58. Glucose 83 and calcium 8.8. PROBLEMS: 1. Acute renal failure. Kidney function is improving nicely, and patient is scheduled to receive intravenous (IV) fluid, however, is currently receiving intravenous Phenergan. I would suggest to hydrate him, which is likely to help improve in his kidney function. 2. Hypokalemia, most likely related to his gastrointestinal (GI) symptoms and poor oral intake. He has received some oral supplement and also going to receive potassium supplement in the IV fluid. Electrolytes should be checked prior to discharge. 3. Hypertension. Most likely has chronic untreated hypertension and should continue with antihypertensive therapy and follow up as an outpatient. 4. Disposition from a renal standpoint, the patient can be discharged after repeating his electrolytes and with appropriate medications and plan for followup as an outpatient.
[2019-02-15] MEDS ORDERED: HYDR-4571 PO (17:44)
[2019-02-15] MEDS ORDERED: AMLO10TA5 PO (17:44)
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
== END 2019-02-15 18:13 | disposition home or self-care (01) | DRG 469 ==
LOC: M ED 16:14 → M ED INP 19:46 → M MSPAV 23:54
PROVIDERS: ADMIT Internal Medicine; ATTEND Internal Medicine Nephrology
DX: N17.9 Acute kidney failure, unspecified (principal); K92.2 Gastrointestinal hemorrhage, unspecified; I10 Essential (primary) hypertension; M79.81 Nontraumatic hematoma of soft tissue; F17.200 Nicotine dependence, unspecified, uncomplicated; B18.2 Chronic viral hepatitis C; F10.10 Alcohol abuse, uncomplicated; E87.6 Hypokalemia

== ENCOUNTER 2020-11-08 13:22 | Emergency (ER) | payer OTHER ==
[~2020-11-08] VITALS: Ht 165.1 cm; Wt 72.4 kg
[2020-11-08 13:22] VITALS: BP 156/89
[~2020-11-08 13:22] MED LIST: AMLO1TAB25 PO; HYDR-4571 PO
== END 2020-11-08 15:15 | disposition left against medical advice (07) ==
LOC: M ED 13:22
DX: Z53.21 Procedure and treatment not carried out due to patient leaving prior to being seen by health care provider (principal)

== ENCOUNTER 2020-11-13 20:44 | Emergency (ER) | payer OTHER ==
[~2020-11-13] VITALS: Ht 177.8 cm; Wt 79.5 kg
[2020-11-13 22:09] LABS: HEMATOCRIT 43.1 % (42.0-52.0); HEMOGLOBIN 15.3 g/dl (13.5-17.5); MEAN CORPUSCULAR HEMOGLOBIN 33.6 pg (27.0-33.0); MEAN CORPUSCULAR HGB CONC 35.5 g/dl (32.0-36.5); MEAN CORPUSCULAR VOLUME 94.5 fl (80.0-96.0); PLATELET COUNT, AUTOMATED 199 10^3/uL (150-450); RED BLOOD COUNT 4.56 10^6/uL (4.30-6.10)
[2020-11-13 22:25] LABS: WHITE BLOOD COUNT 16.4 10^3/uL (4.0-10.0)
[2020-11-13] MEDS ORDERED: BOOSTRIX/ADACEL VACCINE (DIPHTH/PERTUSS/ACELL/TETANUS) 0.5ML SYR IM ONE (22:25)
[2020-11-13] MEDS ORDERED: MORPHINE 4 MG/ML 1ML VIAL/SYRINGE (J2270) IV ONE (22:25)
[2020-11-13] MEDS ORDERED: cefTRIAXone SOD 2 GM in D5W MINI-BAG PLUS 50 ML IV ONE (22:25)
[2020-11-13 22:27] LABS: ATYPICAL LYMPH 5 % (0-5); LYMPHOCYTES 18 % (16-44); MONOCYTES 7 % (0-5); NEUTROPHILS 69 % (28-66)
[2020-11-13 22:29] LABS: PLATELET ESTIMATE NORMAL (NORMAL)
[2020-11-13 22:43] LABS: ALBUMIN 4.1 GM/DL (3.2-5.2); ALT/SGPT 62 U/L (12-78); BILIRUBIN,DIRECT 0.2 MG/DL (0.0-0.2); BILIRUBIN,TOTAL 0.4 MG/DL (0.2-1.0); BLOOD UREA NITROGEN 12 MG/DL (7-18); CALCIUM LEVEL 8.8 MG/DL (8.5-10.1); CARBON DIOXIDE LEVEL 23 MEQ/L (21-32); CHLORIDE LEVEL 104 MEQ/L (98-107); CREATININE FOR GFR 1.01 MG/DL (0.70-1.30); GLOMERULAR FILTRATION RATE > 60.0 (>60); GLUCOSE, FASTING 109 MG/DL (70-100); SODIUM LEVEL 135 MEQ/L (136-145)
[2020-11-13] MEDS ORDERED: ISOVUE-370 76% 100ML VIAL As Ordered ONE (22:46)
[2020-11-13] MEDS ORDERED: PIPERACILLIN/TAZOBACTAM SOD 3.375 GM in D5W MINI-BAG PLUS 50 ML IV ONE (23:30)
[2020-11-13] MEDS ORDERED: fentaNYL 100 MCG/2 ML INJECTION (J3010) IV ONE (23:35)
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
[2020-11-14] MEDS ORDERED: LIDOCAINE 1% MDV 20ML VIAL SC ONE (01:25)
[2020-11-14] MEDS ORDERED: BUPIVACAINE HCL 0.25% 10ML VIAL SC ONE (01:25)
[2020-11-14 01:41] LABS: RSV AMPLIFICATION NEGATIVE (NEGATIVE)
[2020-11-14] MEDS ORDERED: VANCOMYCIN HCL 1,000 MG, VIAL MATE ADAPTER 1 EACH in NS 250 ML IV ONE ×2 (02:00→06:00)
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
[2020-11-14] MEDS ORDERED: fentaNYL 100 MCG/2 ML INJECTION (J3010) IV ONE (02:25)
[2020-11-14 02:42] VITALS: BP 137/79
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
--- NOTE | 2020-11-15 08:34 | REP ---
INDICATION: ORTHO NEEDS FOR PROCEDURE. COMPARISON: Comparison wrist radiographs are from November 14, 2020.. TECHNIQUE: Five views. 98.7 seconds of fluoroscopy time is reported FINDINGS: . A sequence of 5 last image hold fluoroscopically obtained radiographs of the left wrist document closed reduction. IMPRESSION: Procedural imaging. <Electronically signed by Mikal Dhaliwal > 11/15/20 [id number]
== END 2020-11-14 03:42 | disposition left against medical advice (07) ==
LOC: M ED 20:44
DX: S52.572B Other intraarticular fracture of lower end of left radius, initial encounter for open fracture type I or II (principal); R07.81 Pleurodynia; M79.605 Pain in left leg; V86.55XA Driver of 3- or 4- wheeled all-terrain vehicle (ATV) injured in nontraffic accident, initial encounter; Z53.8 Procedure and treatment not carried out for other reasons; F17.200 Nicotine dependence, unspecified, uncomplicated
CPT/HCPCS: 11010; 25605; 71260; 72170; 73090; 73110; 73130; 74177; 80048; 80076; 85025; 87631; 90471; 90715; 93041; 94760; 96365; 96367; 96375; 96376; 99285; J0696; J2270; J2543; J3010; J3370; Q9967

== ENCOUNTER 2020-11-14 20:03 | Emergency (ER) | payer OTHER ==
[~2020-11-14] VITALS: Ht 165.1 cm; Wt 63.6 kg
[2020-11-14] MEDS ORDERED: KETOROLAC 60MG 2ML VIAL IM ONE (20:50)
[2020-11-14] MEDS ORDERED: PERCOCET 5MG/325MG TAB PO ONE (20:50)
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
[2020-11-14 23:44] VITALS: BP 125/67
== END 2020-11-14 23:45 | disposition home or self-care (01) ==
LOC: M ED 20:03
DX: S52.572A Other intraarticular fracture of lower end of left radius, initial encounter for closed fracture (principal); S83.92XA Sprain of unspecified site of left knee, initial encounter; V86.55XD Driver of 3- or 4- wheeled all-terrain vehicle (ATV) injured in nontraffic accident, subsequent encounter; Y92.410 Unspecified street and highway as the place of occurrence of the external cause; Y93.9 Activity, unspecified; Y99.9 Unspecified external cause status; Z87.820 Personal history of traumatic brain injury
CPT/HCPCS: 73110; 73564; 96372; 99284; J1885

== ENCOUNTER 2021-04-08 18:14 | Emergency (ER) | payer MEDICAID, OTHER ==
[~2021-04-08] VITALS: Ht 165.1 cm; Wt 66.2 kg
[2021-04-08 18:14] VITALS: BP 123/85
== END 2021-04-08 20:43 | disposition home or self-care (01) ==
LOC: M ED 18:14
DX: S62.92XD Unspecified fracture of left hand, subsequent encounter for fracture with routine healing (principal); Z46.89 Encounter for fitting and adjustment of other specified devices